=== PATIENT | female | born 1980 | race American Indian/Alaskan Native ===

== ENCOUNTER 2018-09-06 22:25 | Emergency (ER) | payer OTHER ==
[~2018-09-06] VITALS: Ht 147.3 cm; Wt 76.9 kg
[2018-09-06] MEDS ORDERED: ADVIL200 MG (23:06)
[2018-09-07] MEDS ORDERED: CEPHALEXIN500 MG PO (02:09)
== END 2018-09-07 02:22 | disposition home or self-care (01) ==
LOC: ED 22:25
DX: N39.0 Urinary tract infection, site not specified (principal); F17.200 Nicotine dependence, unspecified, uncomplicated; Z90.49 Acquired absence of other specified parts of digestive tract; Z88.0 Allergy status to penicillin
CPT/HCPCS: 80053; 81001; 85025; 96374; 96375; 99284-25; J0696; J1885; J2405

== ENCOUNTER 2019-05-05 19:56 | Emergency (ER) | payer OTHER ==
[~2019-05-05] VITALS: Ht 149.9 cm; Wt 90.7 kg
[~2019-05-05 19:56] MED LIST: ADVIL200 MG; CEPHALEXIN500 MG PO
[2019-05-05] MEDS ORDERED: KEFLEX500 MG PO (22:03)
== END 2019-05-05 22:18 | disposition home or self-care (01) ==
LOC: ED 19:56
DX: H66.93 Otitis media, unspecified, bilateral (principal); F17.200 Nicotine dependence, unspecified, uncomplicated; Z88.0 Allergy status to penicillin
CPT/HCPCS: 99282; A9270

== ENCOUNTER 2019-05-17 07:16 | Emergency (ER) | payer OTHER ==
[~2019-05-17] VITALS: Ht 149.9 cm; Wt 90.7 kg
[~2019-05-17 07:16] MED LIST changes: +KEFLEX500 MG PO
--- OUTSIDE RECORDS SUMMARY | 2019-05-17 07:18 | XMS ---
PreManage Notification: JEZ GALAVIZ Security [employer] Events No recent Security Events currently on file CRITERIA MET - [facility] - 2 Visits in 30 Days CARE PROVIDERS There are no care providers on record at this time. Ken has no Care Guidelines for this patient. [facility] (12 MO.) [facility] NOTE: Visits indicate total known visits. ED/C VISIT TRACKING (12 MO.) [facility] COMPLAINT: - FOOT PAIN, INJ 05/05/2019 19:57 [facility] OR TYPE: Emergency COMPLAINT: - POSS EAR INFECTION/HEADACHE DIAGNOSES: - Cough - Otitis media, unspecified, bilateral - Nicotine dependence, unspecified, uncomplicated - Allergy status to penicillin 09/06/2018 22:26 [facility] TYPE: Emergency COMPLAINT: - RIGHT FLANK PAIN/NON INJURY DIAGNOSES: - Acquired absence of other specified parts of digestive tract - Urinary tract infection, site not specified - Unspecified abdominal pain - Allergy status to penicillin - Nicotine dependence, unspecified, uncomplicated INPATIENT VISIT TRACKING (12 MO.) No inpatient visits to display in this time frame [email or web address]
== END 2019-05-17 08:26 | disposition home or self-care (01) ==
LOC: ED 07:16
DX: S93.602A Unspecified sprain of left foot, initial encounter (principal); X50.9XXA Other and unspecified overexertion or strenuous movements or postures, initial encounter; F17.200 Nicotine dependence, unspecified, uncomplicated; Z88.0 Allergy status to penicillin
CPT/HCPCS: 73630; 99283-25; A9270

== ENCOUNTER 2025-02-17 07:22 | Emergency (ER) | payer OTHER ==
[~2025-02-17] VITALS: Ht 149.9 cm; Wt 88.0 kg
[~2025-02-17 07:22] MED LIST changes: +ADDERALL 20 MG20 MG PO; +LIDODERM1 EACH TOP; +METHOCARBAMOL500 MG PO; +NAPROSYN500 MG PO
[2025-02-17 08:24] LABS: BLOOD/HGB, URINE LARGE (Negative); KETONE, URINE NEGATIVE (Negative); LEUK ESTERASE, URINE MODERATE (negative); NITRITE, URINE NEGATIVE (negative)
[2025-02-17 08:51] LABS: BACTERIA, URINE 1+ /hpf (negative); CASTS, URINE NONE SEEN \\lpf; CRYSTALS, URINE NONE SEEN (0-1+); EPITHELIAL CELLS, URINE OCCASIONAL /lpf (0-1+)
[2025-02-17 08:52] LABS: REFLEX CULTURE, URINE Yes (No)
[2025-02-17] MEDS ORDERED: CEPHALEXIN500 M1 PO (09:00)
[2025-02-17 09:09] VITALS: BP 128/85
[2025-02-17] MEDS ORDERED: CEPHALEXIN MONOHYDRATE 500 MG CAP PO ONE (09:15)
== END 2025-02-17 09:11 | disposition home or self-care (01) ==
LOC: ED 07:22
PROVIDERS: Emergency Medicine
DX: N39.0 Urinary tract infection, site not specified (principal); F17.200 Nicotine dependence, unspecified, uncomplicated; Z88.0 Allergy status to penicillin
CPT/HCPCS: 81001; 87088; 99283; A9270